=== PATIENT | female | born 1945 | race Caucasian/White ===

== ENCOUNTER 2019-06-23 14:15 | Emergency (ER) | payer MEDICARE, BC ==
[2019-06-23 14:52] VITALS: BP 178/76; PULSE 58
--- NOTE | 2019-06-23 16:47 | CT ---
Head CT Technique: Multiple axial sections through the brain were obtained. Intravenous contrast was not utilized. Comparison: Prior head CT study of 12/13/14. Findings: Ventricles along with basal cisterns and sulci over the convexities appear within normal limits for the patient's age. No abnormal parenchymal densities are seen. No evidence of intracranial hemorrhage. No midline shift or mass-effect is seen. Bone window settings were reviewed. No acute paranasal sinus findings are seen within the visualized sinuses. Visualized mastoid sinuses also show nothing acute. No acute calvarial abnormality is appreciated. Impression: 1. Nothing acute is appreciated on noncontrast head CT exam. Diagnostic code #1 This report was dictated in [place] Standard Time
--- NOTE | 2019-06-23 16:53 | CR ---
Chest: 2 views of the chest were obtained. Comparison: Prior chest x-ray of 05/15/19. Heart size is normal. Tortuous thoracic aorta is seen. Lungs are clear with no acute parenchymal change. Bony structures are unremarkable for the patient's age. Impression: 1. Nothing acute is identified on 2 view chest x-ray. Diagnostic code #1 This report was dictated in [place] Standard Time
--- NOTE | 2019-06-23 18:24 | EDM.PDOC ---
ED HPI GENERAL MEDICAL PROBLEM - General Chief Complaint: Neurological Problem Stated Complaint: DIZZY Time Seen by Provider: 06/23/19 15:45 Source of Information: Reports: Patient History Limitations: Reports: No Limitations - History of Present Illness INITIAL COMMENTS - FREE TEXT/NARRATIVE: Patient is a 74-year-old female who presents to the ER with complaints of episode of dizziness approximately 1 hour prior to arrival. She states the episode lasted about 1 less than 1 minute. She did not fall or lose consciousness with this. She denies any vision changes associated with this. Patient states she has had a "nagging "headache for the last 4 days. She states after this episode of dizziness, the headache resolved. She states the pain was in her left episcopalian area. She had no vision changes with these headaches. She described the episode of "dizziness "as a lightheadedness. Did not have the sensation that the room was spinning. Patient also complains of intermittent chest tightness over the last few weeks. She denies any chest pain, or associated shortness of breath. She has felt chilled lately, however has no fever. Past medical history is significant for hypothyroid. She has also been taking an increased dose of vitamin D so she is concerned that she may have too high vitamin D levels. Patient's primary care provider is María Mart. She saw her 2 weeks ago and had labs done and states that they were all normal. There was no adjustment in her thyroid medications at that time. Chest Pain Score (Numeric/FACES): 5 - Related Data Allergies Allergy/AdvReac Type Severity Reaction Status Date / Time cephalexin monohydrate Allergy Vomiting Verified 12/13/14 17:48 [From Keflex] Home Meds: Home Meds Bumetanide [Bumex] 0.5 mg PO DAILY 06/21/14 [History] Calcium Carbonate [Calcium] 1,200 mg PO DAILY 06/21/14 [History] Thyroid,Pork [[place] Thyroid] 60 mg PO DAILY 12/13/14 [History] Nitrofurantoin Monohyd/M-Cryst [Macrobid 100 mg Capsule] 100 mg PO BID 5 Days # 10 capsule 06/23/19 [Rx] Past Medical History Other Cardiovascular History: Rheumatic Fever - Past Surgical History Other GI Surgeries/Procedures: hernia repair, stomach was up behind heart. hx enlgd liver Social & Family History - Tobacco Use Smoking Status *Q: Never Smoker - Caffeine Use Caffeine Use: Reports: Coffee, Soda - Recreational Drug Use Recreational Drug Use: No ED ROS GENERAL - Review of Systems Review Of Systems: Comprehensive ROS is negative, except as noted in HPI. ED EXAM, NEURO - Physical Exam Exam: See Below Exam Limited By: No Limitations General Appearance: Alert, WD/WN, No Apparent Distress Ears: Normal External Exam, Normal Canal, Hearing Grossly Normal, Normal TMs Head Exam: Atraumatic, Normocephalic Respiratory/Chest: No Respiratory Distress, Lungs Clear, Normal Breath Sounds, No Accessory Muscle Use, Chest Non-Tender Cardiovascular: Normal Peripheral Pulses, Regular Rate, Rhythm, No Edema, No Gallop, No JVD, No Murmur, No Rub GI/Abdominal: Normal Bowel Sounds, Soft, Non-Tender, No Organomegaly, No Distention, No Abnormal Bruit, No Mass Neurological: Alert, Normal Mood/Affect, Normal Dorsiflexion, CN II-XII Intact, Normal Plantar Flexion, Normal Gait, Normal Reflexes, No Motor/Sensory Deficits , Oriented x 3 Extremities: Normal Inspection, Normal Range of Motion, Non-Tender, No Pedal Edema, Normal Capillary Refill Psychiatric: Normal Affect, Normal Mood Skin Exam: Warm, Dry, Intact, Normal Color, No Rash EKG INTERPRETATION EKG Date: 06/23/19 Time: 16:38 Rhythm: NSR Rate (Beats/Min): 62 [place]: Normal P-Wave: Present QRS: Normal ST-T: Normal QT: Normal Comparison: NA - No Prior EKG EKG Interpretation Comments: P wave inverted V1 Near Q wave III and Q wave aVF. Consider old inferior wall DC Left atrial hypertrophy Left axis deviation Left anterior fascicular block QTC mildly prolonged Incomplete right bundle branch block pattern EKG interpreted by Dr. Marcia MD. Course - Vital Signs Last Recorded V/S: Last Vital Signs Temp 97.2 F 06/23/19 14:51 Pulse 58 L 06/23/19 14:51 Resp 20 06/23/19 14:51 BP 178/76 H 06/23/19 14:51 Pulse Ox 99 06/23/19 14:51 Orthostatic Blood Pressure [ 164/68 Standing] Orthostatic Blood Pressure [ 166/67 Sitting] Orthostatic Blood Pressure [ 162/78 Supine] - Orders/Labs/Meds Orders: Active Orders 24 hr Category Date Time Status EKG Documentation Completion [RC] STAT Care 06/23/19 16:26 Active Orthostatic Vital Signs [RC] ASDIRECTED Care 06/23/19 15:46 Active Labs: Laboratory Tests 06/23/19 06/23/19 06/23/19 Range/Units 15:30 16:56 16:56 WBC 7.41 (3.98-10.04) K/mm3 RBC 4.65 (3.98-5.22) M/mm3 Hgb 14.0 (11.2-15.7) gm/dl Hct 43.8 (34.1-44.9) % MCV 94.2 (79.4-94.8) fl MCH 30.1 (25.6-32.2) pg MCHC 32.0 L (32.2-35.5) g/dl RDW Std Deviation 46.2 (36.4-46.3) fL Plt Count 271 (182-369) K/mm3 MPV 9.9 (9.4-12.3) fl Neut % (Auto) 57.2 (34.0-71.1) % Lymph % (Auto) 31.0 (19.3-51.7) % [place] % (Auto) 7.2 (4.7-12.5) % Eos % (Auto) 4.0 (0.7-5.8) Baso % (Auto) 0.5 (0.1-1.2) % Neut # (Auto) 4.23 (1.56-6.13) K/mm3 Lymph # (Auto) 2.30 (1.18-3.74) K/mm3 [place] # (Auto) 0.53 H (0.24-0.36) K/mm3 Eos # (Auto) 0.30 (0.04-0.36) K/mm3 Baso # (Auto) 0.04 (0.01-0.08) K/mm3 Sodium 145 (136-145) mEq/L Potassium 3.7 (3.5-5.1) mEq/L Chloride 106 (98-107) mEq/L Carbon Dioxide 26 (21-32) mEq/L Anion Gap 16.7 H (5-15) BUN 17 (7-18) mg/dL Creatinine 0.9 (0.55-1.02) mg/dL Est Cr Clr Drug Dosing 40.13 mL/min Estimated GFR (MDRD) > 60 (>60) mL/min BUN/Creatinine Ratio 18.9 H (14-18) Glucose 86 (83-115) mg/dL Calcium 9.4 (8.5-10.1) mg/dL Total Bilirubin 0.5 (0.2-1.0) mg/dL AST 37 (15-37) U/L ALT 60 H (14-59) U/L Alkaline Phosphatase 98 (46-116) U/L Troponin I < 0.017 (0.00-0.056) ng/mL Total Protein 7.4 (6.4-8.2) g/dl Albumin 3.7 (3.4-5.0) g/dl Globulin 3.7 gm/dL Albumin/Globulin Ratio 1.0 (1-2) Vitamin D 25-Hydroxy 31.5 (30.0-100.0) ng/ml TSH 3rd Generation 3.930 H (0.358-3.74) uIU/mL Urine Color Yellow (Yellow) Urine Appearance Clear (Clear) Urine pH 7.0 (5.0-8.0) Ur Specific [place] 1.020 (1.005-1.030) Urine Protein Negative (Negative) Urine Glucose (UA) Negative (Negative) Urine Ketones Negative (Negative) Urine Occult Blood Negative (Negative) Urine Nitrite Negative (Negative) Urine Bilirubin Negative (Negative) Urine Urobilinogen 0.2 (0.2-1.0) Ur Leukocyte Esterase 2+ H (Negative) Urine RBC Not seen (0-5) /hpf Urine WBC 5-10 H (0-5) /hpf Ur Squamous Epith Cells 0-5 (0-5) /hpf Urine Bacteria Rare (FEW) /hpf Urine Mucus Not seen (FEW) /hpf - Re-Assessments/Exams Free Text/Narrative Re-Assessment/Exam: Hematology was significant for a mildly elevated anion gap of 16.7. TSH elevated at 3.930. Urinalysis was positive for 2+ leukocyte esterase and 5-[address] and chest x-ray were both normal. EKG was negative for any acute abnormalities. Troponin was negative. Discussed these findings with the patient. She request to not adjust her thyroid medication today as she states the levels were normal 2 weeks ago. She would like to treat her urinary tract infection and then follow-up with her primary care provider to have her thyroid checked again before changing. We will discharge her home with a prescription for Macrobid and instructions to follow-up with her primary care provider sometime next week for a follow-up and to have her thyroid levels checked. Discharge instructions as documented. Departure - Departure Time of Disposition: 19:45 Disposition: Home, Self-Care 01 Condition: Fair Clinical Impression: Dizziness Urinary tract infection Qualifiers: Urinary tract infection type: site unspecified Hematuria presence: without hematuria Qualified Code(s): N39.0 - Urinary tract infection, site not specified - Discharge Information *PRESCRIPTION DRUG MONITORING PROGRAM REVIEWED*: No *COPY OF PRESCRIPTION DRUG MONITORING REPORT IN PATIENT [place]: No Prescriptions: Nitrofurantoin Monohyd/M-Cryst [Macrobid 100 mg Capsule] 100 mg PO BID 5 Days # 10 capsule Instructions: Urinary Tract Infection, Adult, Dizziness, [id number] Referrals: María Mart NP [Primary Care Provider] - Forms: ED Department Discharge Additional Instructions: You were seen in the emergency department today for having an episode of dizziness. The time he arrived to the ER the dizziness had resolved. Your work -up included blood work, chest x-ray, EKG, head CT, and urinalysis. Your work- up was found to be normal with the exception of a slightly elevated TSH indicating that you are in a hypothyroid state, as well as a mild urinary tract infection. You have been started on Macrobid for the urinary tract infection. Take this medication as prescribed. At your request, no adjustments were made to your thyroid medication. Recommend that you follow-up with your primary care provider to discuss this change. Ensure that you are staying adequately hydrated. If you should experience any new or worsening symptoms of concern, please do not hesitate to return to the emergency department. Otherwise I would recommend that you call to schedule a follow-up appointment with your primary care provider for sometime early next week. Sepsis Event Note - Evaluation Sepsis Screening Result: No Definite Risk - Focused Exam Vital Signs: Vital Signs Temp Pulse Resp BP Pulse Ox 06/23/19 14:51 97.2 F 58 L 20 178/76 H 99 Date Exam was Performed: 06/24/19 Time Exam was Performed: 01:27 - My Orders Last 24 Hours: My Active Orders 06/23/19 15:46 Orthostatic Vital Signs [RC] ASDIRECTED 06/23/19 16:26 EKG Documentation Completion [RC] STAT - Assessment/Plan Last 24 Hours: My Active Orders 06/23/19 15:46 Orthostatic Vital Signs [RC] ASDIRECTED 06/23/19 16:26 EKG Documentation Completion [RC] STAT
[2019-06-23 18:49] LABS: VITAMIN D,25-HYDROXY 31.5 ng/ml (30.0-100.0)
== END 2019-06-23 19:10 | disposition home or self-care (01) ==
LOC: JD.ED 14:15 → SUPCPDRO 14:15 → JD.ED 19:10
DX: N39.0 Urinary tract infection, site not specified (principal); E03.9 Hypothyroidism, unspecified; Z88.1 Allergy status to other antibiotic agents; Z79.899 Other long term (current) drug therapy
CPT/HCPCS: 36415; 70450; 70450-26; 71046; 71046-26; 80053; 81001; 82306; 84443; 84484; 85025; 93005; 93010; 99284; 99285-25